=== PATIENT | male | born 1950 | race Two or more races ===

== ENCOUNTER 2020-06-03 09:30 | Inpatient (IN) | payer OTHER ==
[~2020-06-03] VITALS: Ht 177.8 cm; Wt 86.2 kg
[2020-06-03] MEDS ORDERED: METFORMIN HCL500 M3 PO (11:16)
[2020-06-03] MEDS ORDERED: SIMVASTATIN40 MG PO (11:17)
[2020-06-03] MEDS ORDERED: GLIMEPIRIDE4 M1 PO (11:17)
[2020-06-03] MEDS ORDERED: ALTACE10 MG PO (11:17)
[2020-06-17] MEDS ORDERED: PERCOCET 5-3251 EACH PO (12:16)
[2020-06-17] MEDS ORDERED: PRILOSEC OTC20 MG PO (12:16)
== END 2020-06-17 14:05 | disposition home or self-care (01) | DRG 330 ==
LOC: EDUNIT# 09:30 → SURH 06-11 06:02 → O/R 06-11 06:02 → SURH 06-11 09:30
PROVIDERS: ADMIT Surgery; ATTEND Surgery
PROC: 07TB4ZZ Resection of Mesenteric Lymphatic, Percutaneous Endoscopic Approach (ICD-10-PCS; 2020-06-11)
PROC: 0DTF4ZZ Resection of Right Large Intestine, Percutaneous Endoscopic Approach (ICD-10-PCS; principal; 2020-06-11 12:15)
PROC: 02HV33Z Insertion of Infusion Device into Superior Vena Cava, Percutaneous Approach (ICD-10-PCS; 2020-06-13)
DX: D12.2 Benign neoplasm of ascending colon (principal); N13.8 Other obstructive and reflux uropathy; K91.89 Other postprocedural complications and disorders of digestive system; K56.7 Ileus, unspecified; Z20.828 Contact with and (suspected) exposure to other viral communicable diseases; R59.0 Localized enlarged lymph nodes; I13.10 Hypertensive heart and chronic kidney disease without heart failure, with stage 1 through stage 4 chronic kidney disease, or unspecified chronic kidney disease; N18.2 Chronic kidney disease, stage 2 (mild); N40.1 Benign prostatic hyperplasia with lower urinary tract symptoms

== ENCOUNTER 2020-06-10 07:01 | Day surgery (SDC) | payer OTHER ==
[~2020-06-10 07:01] MED LIST: ALTACE10 MG PO; GLIMEPIRIDE4 M1 PO; METFORMIN HCL500 M3 PO; SIMVASTATIN40 MG PO
== END 2020-06-10 12:05 | disposition home or self-care (01) ==
LOC: AMB-ENDOS 07:01
PROVIDERS: ATTEND Surgery
DX: D12.2 Benign neoplasm of ascending colon (principal); Z20.828 Contact with and (suspected) exposure to other viral communicable diseases

== ENCOUNTER 2021-07-21 06:20 | Day surgery (SDC) | payer OTHER ==
[~2021-07-21 06:20] MED LIST changes: +PERCOCET 5-3251 EACH PO; +PRILOSEC OTC20 MG PO
== END 2021-07-21 09:55 | disposition home or self-care (01) ==
LOC: AMB-ENDOS 06:20
PROVIDERS: ATTEND Surgery
DX: K62.89 Other specified diseases of anus and rectum (principal); Z20.822 Contact with and (suspected) exposure to COVID-19